=== PATIENT | female | born 1955 | race Caucasian/White ===

== ENCOUNTER → 2017-08-13 | Outpatient (CLI) | payer BC ==
--- NOTE | 2017-08-16 11:50 | MM ---
Reason for exam: screening (asymptomatic). Last mammogram was performed 2 years ago. History: Patient is postmenopausal, history of other cancer, and had first child at age 32. Benign excisional biopsy of the left breast. Benign excisional biopsy of the right breast. Took hormonal contraceptives for 3 years. Physical Findings: A clinical breast exam by your physician is recommended on an annual basis and results should be correlated with mammographic findings. MG Screening Mammo w CAD Bilateral CC and MLO view(s) were taken. Prior study comparison: August 01, 2015, mammogram. There are scattered fibroglandular densities. No significant changes when compared with prior studies. ASSESSMENT: Benign, BI-RAD 2 RECOMMENDATION: Routine screening mammogram of both breasts in 1 year.
== END | disposition home or self-care (01) ==
LOC: RADMAMWWP 09:44
PROVIDERS: ATTEND Family Medicine
DX: Z12.31 Encounter for screening mammogram for malignant neoplasm of breast (principal)

== ENCOUNTER → 2017-09-03 | Outpatient (CLI) | payer BC ==
--- NOTE | 2017-09-03 10:29 | ECHOF ---
Referral Reason:R01.1 Cardiac murmer Unspecified,I10 HTN, ELL.9 MEASUREMENTS -------- HEIGHT: 160.0 cm WEIGHT: 65.3 kg BP: 160/69 RVIDd: 2.6 cm (< 3.3) IVSd: 1.0 cm (0.6 - 1.1) LVIDd: 3.2 cm (3.9 - 5.3) LVPWd: 1.0 cm (0.6 - 1.1) IVSs: 1.5 cm LVIDs: 2.3 cm LVPWs: 1.4 cm LA Diam: 3.0 cm (2.7 - 3.8) LAESV Index (A-L): 21.87 ml/m Ao Diam: 2.7 cm (2.0 - 3.7) AV Cusp: 1.6 cm (1.5 - 2.6) MV EXCURSION: 13.818 mm (> 18.000) MV EF SLOPE: 29 mm/s (70 - 150) EPSS: 0.3 cm MV E Rey: 0.73 m/s MV DecT: 346 ms MV A Rey: 0.85 m/s MV E/A Ratio: 0.86 AV maxP.06 mmHg AV meanP.88 mmHg FINDINGS -------- Sinus rhythm. This was a technically good study. The left ventricular size is normal. Left ventricular wall thickness is normal. Overall left vent ricular systolic function is normal with, an EF between 60 - 65 %. The right ventricle is normal in size. Normal LA size by volume 22+/-6 ml/m2. The right atrium is normal in size. There is mild aortic valve sclerosis. Peak/mean gradient across the Aortic Valve is 13.06mmHg / 5.8 8mmHg. Mild mitral annular calcification present. The tricuspid valve appears structurally normal. There is no pulmonic regurgitation present. The aortic root size is normal. Normal inferior vena cava with normal inspiratory collapse consistent with estimated right atrial pre ssure of 5 mmHg. There is no pericardial effusion. CONCLUSIONS -------- 1. Sinus rhythm. 2. This was a technically good study. 3. The left ventricular size is normal. 4. Left ventricular wall thickness is normal. 5. Overall left ventricular systolic function is normal with, an EF between 60 - 65 %. 6. The right ventricle is normal in size. 7. Normal LA size by volume 22+/-6 ml/m2. 8. The right atrium is normal in size. 9. There is mild aortic valve sclerosis. 10. Peak/mean gradient across the Aortic Valve is 13.06mmHg / 5.88mmHg. 11. Mild mitral annular calcification present. 12. The tricuspid valve appears structurally normal. 13. There is no pulmonic regurgitation present. 14. The aortic root size is normal. 15. Normal inferior vena cava with normal inspiratory collapse consistent with estimated right atrial pressure of 5 mmHg. 16. There is no pericardial effusion. LIVE IN HOUSEKEEPER: Bailee Sanderson RDCS
== END | disposition home or self-care (01) ==
LOC: RADECHMAIN 08:17
PROVIDERS: ATTEND Family Medicine
DX: I35.8 Other nonrheumatic aortic valve disorders (principal)
CPT/HCPCS: 93306

== ENCOUNTER → 2018-11-10 | Outpatient (CLI) | payer BC ==
--- NOTE | 2018-11-11 10:25 | MM ---
Reason for exam: screening (asymptomatic). Last mammogram was performed 1 year and 3 months ago. History: Patient is postmenopausal, history of other cancer, and had first child at age 32. Benign excisional biopsy of the left breast. Benign excisional biopsy of the right breast. Took hormonal contraceptives for 3 years. Physical Findings: A clinical breast exam by your physician is recommended on an annual basis and results should be correlated with mammographic findings. MG Screening Mammo w CAD Bilateral CC and MLO view(s) were taken. Prior study comparison: August 13, 2017, bilateral MG screening mammo w CAD. August 01, 2015, mammogram. There are scattered fibroglandular densities. Stable benign calcifications. There is no discrete abnormality. No significant changes when compared with prior studies. ASSESSMENT: Benign, BI-RAD 2 RECOMMENDATION: Routine screening mammogram of both breasts in 1 year.
== END | disposition home or self-care (01) ==
LOC: RADMAMWWP 15:05
PROVIDERS: ATTEND Family Medicine
DX: Z12.31 Encounter for screening mammogram for malignant neoplasm of breast (principal)
CPT/HCPCS: 77067

== ENCOUNTER → 2019-12-04 | Outpatient (CLI) | payer BC ==
--- NOTE | 2019-12-04 10:18 | MM ---
Reason for exam: screening (asymptomatic). Last mammogram was performed 1 year and 1 month ago. History: Patient is postmenopausal, history of other cancer, and had first child at age 32. Benign excisional biopsy of the left breast. Benign excisional biopsy of the right breast. Took hormonal contraceptives for 3 years. Physical Findings: A clinical breast exam by your physician is recommended on an annual basis and results should be correlated with mammographic findings. MG 3D Screening Mammo W/Cad Bilateral CC and MLO view(s) were taken. Prior study comparison: November 10, 2018, bilateral MG screening mammo w CAD. August 13, 2017, bilateral MG screening mammo w CAD. The breast tissue is heterogeneously dense. This may lower the sensitivity of mammography. There is no discrete abnormality. No significant changes when compared with prior studies. ASSESSMENT: Negative, BI-RAD 1 RECOMMENDATION: Routine screening mammogram of both breasts in 1 year.
== END | disposition home or self-care (01) ==
LOC: RADMAMWWP 07:02
PROVIDERS: ATTEND Family Medicine
DX: Z12.31 Encounter for screening mammogram for malignant neoplasm of breast (principal)
CPT/HCPCS: 77063; 77067

== ENCOUNTER 2022-08-30 17:42 | Inpatient (IN) | payer MEDICARE ==
[2022-08-30] MEDS ORDERED: SODIUM CHLORIDE 0.9% 500 ML 500 ML IV STA (18:31)
--- NOTE | 2022-08-30 18:35 | ED ---
Arrhythmia/Palpitations HPI - General Chief Complaint: Arrhythmia/Palpitations Stated Complaint: Tachycardia Time Seen by Provider: 08/30/22 18:10 Source: patient, family, RN notes reviewed, old records reviewed Mode of arrival: ambulatory Limitations: no limitations - History of Present Illness Initial Comments: Well-appearing 66-year-old female presents to the emergency room with family complaining of palpitations that started 1 hour ago while at rest. Patient states that she did see Dr. Bush for these palpitations and was placed on a media monitor on Wednesday. He advised her that if her symptoms came back to come to the emergency room. She denies any chest pain, difficulty breathing, no nausea vomiting diarrhea or fevers. She has a history of diabetes, hypertension and melanoma. Does take lisinopril 30 mg daily. MD Complaint: rapid heart beat, palpitations -: hour(s) (1) Context: occurred during rest Associated Symptoms: denies other symptoms Treatments Prior to Arrival: other (media monitor placed Wednesday) - Related Data Home Medications Medication Instructions Recorded Confirmed Atorvastatin [Lipitor] 20 mg PO HS 05/29/14 08/30/22 Metformin Er 750mg 1 tab PO DAILY 08/30/22 08/30/22 lisinopriL [Zestril] 30 mg PO DAILY 08/30/22 08/30/22 Allergies Allergy/AdvReac Type Severity Reaction Status Date / Time Penicillins Allergy Rash/Hives Verified 08/30/22 20:15 Review of Systems ROS Statement: Those systems with pertinent positive or pertinent negative responses have been documented in the HPI. ROS Other: All systems not noted in ROS Statement are negative. Past Medical History Past Medical History: Cancer, Diabetes Mellitus, Hyperlipidemia, Hypertension Additional Past Medical History / Comment(s): HAD SOME BANDING OF HEMORRHOIDS IN 'S OFFICE- STILL AHS ONE THAT IS BLEEDING AT TIMES-WEARS A PAD. HX SKIN CA- MELANOMA RT THIGH History of Any Multi-Drug Resistant Organisms: None Reported Past Surgical History: Breast Surgery, Cholecystectomy Additional Past Surgical History / Comment(s): BIOPSIES RADHA. BREAST AND UNDERARM AREAS A CHILD -BENIGN Past Anesthesia/Blood Transfusion Reactions: No Reported Reaction Past Psychological History: No Psychological Hx Reported Smoking Status: Never smoker Past Alcohol Use History: Occasional Past Drug Use History: None Reported General Exam Limitations: no limitations General appearance: alert, in no apparent distress Eye exam: Absent: scleral icterus, conjunctival injection Respiratory exam: Present: normal lung sounds bilaterally. Absent: respiratory distress, wheezes, rales, rhonchi, stridor, chest wall tenderness, accessory muscle use Cardiovascular Exam: Present: irregular rhythm GI/Abdominal exam: Present: soft. Absent: distended, tenderness, guarding, rebound, rigid Extremities exam: Present: normal inspection, full ROM, normal capillary refill. Absent: pedal edema Back exam: Present: normal inspection, full ROM. Absent: tenderness, CVA tenderness (R), CVA tenderness (L), rash noted Neurological exam: Present: alert, oriented X3 Psychiatric exam: Present: normal affect, normal mood Skin exam: Present: warm, dry, normal color. Absent: cyanosis, diaphoretic, petechiae, pallor Course Vital Signs 08/30/22 08/30/22 08/30/22 18:06 19:04 20:08 Temperature 99 F Pulse Rate 96 161 H 87 Respiratory 20 18 18 Rate Blood Pressure 136/83 120/72 137/66 O2 Sat by Pulse 98 99 97 Oximetry - Reevaluation(s) Reevaluation #1: 08/30/22 19:29 Ventricular rate controlled with Cardizem at 76. Time: 19:29 EKG Findings - EKG Results: EKG shows: atrial fibrillation (Atrial fibrillation with rapid ventricular rate 151, QRS 0.79, QTC 0.341; normal axis) Medical Decision Making - Medical Decision Making Patient presents with palpitations that started about one hour ago. She was put on a media monitor by her certified registered dental assistant Dr. Bush on Wednesday for palpitations. Upon arrival EKG shows atrial fibrillation with rapid ventricular rate 160 Patient was given 20 mg of Cardizem with rate control down to 76. At 2200 patient's rate back to 140, afib.. She was given another bolus and started on a Cardizem drip. Patient is hemodynamically stable. CBC is unremarkable. Electrolytes show magnesium 1.4 patient was given IV magnesium replacement. Troponin is negative at 0.012. BUN and creatinine are slightly elevated at 20 and 1.08. No old labs to compare. Chest x-ray negative. Patient was advised of findings and agreeable to admission. Patient will be admitted to the hospital with new onset atrial fibrillation and hypomagnesemia. Case discussed with Dr. Khanpara - Lab Data Result diagrams: 08/30/22 18:51 08/30/22 18:51 Lab Results 08/30/22 08/30/22 08/30/22 Range/Units 18:51 18:51 18:51 WBC 8.1 (3.8-10.6) k/uL RBC 4.12 (3.80-5.40) m/uL Hgb 12.8 (11.4-16.0) gm/dL Hct 37.3 (34.0-46.0) % MCV 90.5 (80.0-100.0) fL MCH 31.0 (25.0-35.0) pg MCHC 34.3 (31.0-37.0) g/dL RDW 13.8 (11.5-15.5) % Plt Count 202 (150-450) k/uL MPV 9.6 Neutrophils % 66 % Lymphocytes % 19 % Monocytes % 6 % Eosinophils % 7 % Basophils % 1 % Neutrophils # 5.3 (1.3-7.7) k/uL Lymphocytes # 1.5 (1.0-4.8) k/uL Monocytes # 0.5 (0-1.0) k/uL Eosinophils # 0.6 (0-0.7) k/uL Basophils # 0.1 (0-0.2) k/uL PT 10.7 (9.0-12.0) sec INR 1.0 (<1.2) APTT 23.3 (22.0-30.0) sec Sodium 138 (137-145) mmol/L Potassium 4.0 (3.5-5.1) mmol/L Chloride 104 (98-107) mmol/L Carbon Dioxide 18 L (22-30) mmol/L Anion Gap 16 mmol/L BUN 20 H (7-17) mg/dL Creatinine 1.08 H (0.52-1.04) mg/dL Est GFR (CKD-EPI)AfAm 62 (>60 ml/min/1.73 sqM) Est GFR (CKD-EPI)NonAf 54 (>60 ml/min/1.73 sqM) Glucose 202 H (74-99) mg/dL Calcium 9.2 (8.4-10.2) mg/dL Magnesium 1.4 L (1.6-2.3) mg/dL Total Bilirubin 0.3 (0.2-1.3) mg/dL AST 23 (14-36) U/L ALT 17 (4-34) U/L Alkaline Phosphatase 50 (38-126) U/L Troponin I (0.000-0.034) ng/mL Total Protein 7.0 (6.3-8.2) g/dL Albumin 4.4 (3.5-5.0) g/dL 08/30/22 Range/Units 18:51 WBC (3.8-10.6) k/uL RBC (3.80-5.40) m/uL Hgb (11.4-16.0) gm/dL Hct (34.0-46.0) % MCV (80.0-100.0) fL MCH (25.0-35.0) pg MCHC (31.0-37.0) g/dL RDW (11.5-15.5) % Plt Count (150-450) k/uL MPV Neutrophils % % Lymphocytes % % Monocytes % % Eosinophils % % Basophils % % Neutrophils # (1.3-7.7) k/uL Lymphocytes # (1.0-4.8) k/uL Monocytes # (0-1.0) k/uL Eosinophils # (0-0.7) k/uL Basophils # (0-0.2) k/uL PT (9.0-12.0) sec INR (<1.2) APTT (22.0-30.0) sec Sodium (137-145) mmol/L Potassium (3.5-5.1) mmol/L Chloride (98-107) mmol/L Carbon Dioxide (22-30) mmol/L Anion Gap mmol/L BUN (7-17) mg/dL Creatinine (0.52-1.04) mg/dL Est GFR (CKD-EPI)AfAm (>60 ml/min/1.73 sqM) Est GFR (CKD-EPI)NonAf (>60 ml/min/1.73 sqM) Glucose (74-99) mg/dL Calcium (8.4-10.2) mg/dL Magnesium (1.6-2.3) mg/dL Total Bilirubin (0.2-1.3) mg/dL AST (14-36) U/L ALT (4-34) U/L Alkaline Phosphatase (38-126) U/L Troponin I <0.012 (0.000-0.034) ng/mL Total Protein (6.3-8.2) g/dL Albumin (3.5-5.0) g/dL Disposition Clinical Impression: New onset atrial fibrillation, Atrial fibrillation with RVR, Hypomagnesemia Disposition: ADMITTED IP TO THIS [facility] Decision Date: 08/30/22 Decision Time: 18:55
[2022-08-30] MEDS ORDERED: DILTIAZEM 5 MG/ML 5 ML VIAL IVP STA ×3 (18:40→22:06)
[2022-08-30 18:58] LABS: Basophils # (A) 0.1 k/uL (0-0.2); Basophils % (A) 1 %; Eosinophils # (A) 0.6 k/uL (0-0.7); Eosinophils % (A) 7 %; HCT 37.3 % (34.0-46.0); HGB 12.8 gm/dL (11.4-16.0); Lymphocytes # (A) 1.5 k/uL (1.0-4.8); Lymphocytes % (A) 19 %; MCHC 34.3 g/dL (31.0-37.0); MCV 90.5 fL (80.0-100.0); Mean Platelet Volume 9.6; Monocytes # (A) 0.5 k/uL (0-1.0); Monocytes % (A) 6 %; Neutrophils # (A) 5.3 k/uL (1.3-7.7); Neutrophils % (A) 66 %; Platelet Count 202 k/uL (150-450); RBC 4.12 m/uL (3.80-5.40); RDW 13.8 % (11.5-15.5); WBC 8.1 k/uL (3.8-10.6)
[2022-08-30 19:04] LABS: Partial Thromboplastin Time 23.3 sec (22.0-30.0); Prothrombin Time 10.7 sec (9.0-12.0)
[2022-08-30 19:12] LABS: Albumin 4.4 g/dL (3.5-5.0); Calcium 9.2 mg/dL (8.4-10.2); Magnesium 1.4 mg/dL (1.6-2.3); Total Bilirubin 0.3 mg/dL (0.2-1.3)
[2022-08-30] MEDS ORDERED: Magnesium Replacement Protocol 1 EACH MISC MISCELLANE PRN (19:27)
--- NOTE | 2022-08-30 19:59 | XR ---
EXAMINATION TYPE: XR chest 2V DATE OF EXAM: 08/30/2022 COMPARISON: NONE HISTORY: Palpitations TECHNIQUE: 2 views FINDINGS: Heart and mediastinum are normal. Lungs are clear. Diaphragm is normal. Bony thorax is inta ct. There are chest leads. IMPRESSION: Normal chest.
[2022-08-30] MEDS: MAGNESIUM SULFATE-D5W PMX 1 GM in DEXTROSE/WATER 1 100ML.BAG IVPB SCH ×2 (20:07→22:05)
[2022-08-30] MEDS ORDERED: ACETAMINOPHEN TAB 325 MG TAB PO PRN (20:09)
[2022-08-30] MEDS ORDERED: NALOXONE 0.4 MG/ML 1 ML VIAL IV PRN (20:09)
[2022-08-30] MEDS: DILTIAZEM 125 MG in SODIUM CHLORIDE 0.9% 100 ML IV SCH (22:47)
[2022-08-31] MEDS: MAGNESIUM SULFATE-D5W PMX 1 GM in DEXTROSE/WATER 1 100ML.BAG IVPB SCH (00:12)
[2022-08-31 05:57] LABS: Glucose,Whole Blood 155 mg/dL (70-110)
[2022-08-31 06:46] LABS: HCT 37.2 % (34.0-46.0); HGB 12.7 gm/dL (11.4-16.0); MCH 31.4 pg (25.0-35.0); MCHC 34.2 g/dL (31.0-37.0); MCV 91.7 fL (80.0-100.0); Mean Platelet Volume 9.2; Platelet Count 199 k/uL (150-450); RBC 4.06 m/uL (3.80-5.40); RDW 13.4 % (11.5-15.5); WBC 7.6 k/uL (3.8-10.6)
[2022-08-31 07:02] LABS: Calcium 8.5 mg/dL (8.4-10.2); Magnesium 2.1 mg/dL (1.6-2.3); Potassium 4.1 mmol/L (3.5-5.1)
[2022-08-31] MEDS: METOPROLOL SUCCINATE (ER) 25 MG TAB.ER.24H PO SCH (08:45)
[2022-08-31] MEDS: lisinopriL 10 MG TAB PO SCH (08:45)
[2022-08-31] MEDS: metFORMIN 500 MG TAB PO SCH ×2 (08:45→20:32)
[2022-08-31] MEDS: APIXABAN 5 MG TAB PO SCH ×2 (08:45→20:32)
--- NOTE | 2022-08-31 10:11 | P.CRDCN ---
History of Present Illness History of present illness: HISTORY OF PRESENTING ILLNESS This is a pleasant 66-year-old female past medical history significant for type 2 diabetes, hypertension, dyslipidemia. She follows in the office with Dr. Bush. We have been asked to see in consultation for new onset atrial fibrillation with rapid ventricular response. Patient presents to the emergency department with complaints of palpitations. She states she had them yesterday for about an hour while at rest. She presents emergency department for further evaluation. She denies any chest pain, lightheadedness, dizziness, shortness of breath, syncope or near-syncope. She denies any cough, fever, chills. She denies any history of CAD, MA, stroke, seizures, lung disease. She does have a family history of CAD. She denies any tobacco or illicit drug use. Occasional alcohol use. On admission patient was found to be in atrial fibrillation with rapid ventricular response, started on IV Cardizem drip, her heart rate improved. DIAGNOSTICS EKG reveals atrial fibrillation with rapid ventricular response, heart rate 151 Telemetry reviewed, patient continues to be in atrial fibrillation with controlled ventricular rates Chest xray no acute cardiopulmonary process Laboratory reviewed, CBC unremarkable, sodium 137, potassium 4.1, BUN 18, serum crit 0.8, troponin negative, TSH within normal limits, magnesium 2.1 Current home medications include atorvastatin 20 mg nightly, metformin, lisinopril 2039 g daily REVIEW OF SYSTEMS At the time of my exam: CONSTITUTIONAL: Denies fever or chills. CARDIOVASCULAR: Denies chest pain, shortness of breath, orthopnea, PND +palpitations. RESPIRATORY: Denies cough. GASTROINTESTINAL: Denies abdominal pain, diarrhea, constipation, nausea or vomiting. MUSCULOSKELETAL: Denies myalgias. NEUROLOGIC: Denies numbness, tingling, headacbe or weakness. ENDOCRINE: Denies fatigue, weight change, polydipsia or polyurina. GENITOURINARY: Denies burning, hematuria or urgency with micturation. HEMATOLOGIC: Denies history of anemia or bleeding. PHYSICAL EXAMINATION Vitals blood pressure 133/85, heart 92, afebrile, saturations 96% room air CONSTITUTIONAL: No apparent distress. HEENT: Head is normocephalic. Pupils are equal, round. Sclerae anicteric. Mucous membranes of the mouth are moist. No JVD. No carotid bruit. CHEST EXAMINATION: Lungs are clear to auscultation. No chest wall tenderness is noted on palpation or with deep breathing. HEART EXAMINATION: Irregular rate and rhythm. S1, S2 heard. No murmurs, gallops or rub. ABDOMEN: Soft, nontender. Positive bowel sounds. EXTREMITIES: 2+ peripheral pulses, no lower extremity edema and no calf tenderness. SKIN: Warm, dry NEUROLOGIC EXAMINATION: Patient is awake, alert and oriented x3. ASSESSMENT New onset paroxysmal atrial fibrillation with rapid ventricular response [id number] score 4 Palpitations Type 2 diabetes Hypertension Dyslipidemia PLAN Start metoprolol 25mg daily Wean off Cardizem drip Start anticoagulation with Eliquis 5mg BID, consult case management for coverage Cardiac telemetry Obtain 2D echocardiogram Further recommendations based on clinical course Nurse practitioner note has been reviewed by physician. Signing provider agrees with the documented findings, assessment, and plan of care. Past Medical History Past Medical History: Cancer, Diabetes Mellitus, Hyperlipidemia, Hypertension Additional Past Medical History / Comment(s): HAD SOME BANDING OF HEMORRHOIDS IN 'S OFFICE- STILL AHS ONE THAT IS BLEEDING AT TIMES-WEARS A PAD. HX SKIN CA- MELANOMA RT THIGH History of Any Multi-Drug Resistant Organisms: None Reported Past Surgical History: Breast Surgery, Cholecystectomy Additional Past Surgical History / Comment(s): BIOPSIES RADHA. BREAST AND UNDERARM AREAS A CHILD -BENIGN Past Anesthesia/Blood Transfusion Reactions: No Reported Reaction Past Psychological History: No Psychological Hx Reported Smoking Status: Never smoker Past Alcohol Use History: Occasional Past Drug Use History: None Reported Medications and Allergies Home Medications Medication Instructions Recorded Confirmed Type Atorvastatin [Lipitor] 20 mg PO HS 05/29/14 08/30/22 History Metformin Er 750mg 1 tab PO DAILY 08/30/22 08/30/22 History lisinopriL [Zestril] 30 mg PO DAILY 08/30/22 08/30/22 History Allergies Allergy/AdvReac Type Severity Reaction Status Date / Time Penicillins Allergy Rash/Hives Verified 08/30/22 20:15 Physical Exam Vitals: Vital Signs Temp Pulse Pulse Resp BP BP Pulse Ox 08/31/22 03:17 98.8 F 86 17 124/69 98 08/30/22 23:27 88 18 113/70 97 08/30/22 22:06 148 H 18 135/98 98 08/30/22 20:08 87 18 137/66 97 08/30/22 19:04 161 H 18 120/72 99 08/30/22 18:06 99 F 96 20 136/83 98 Intake and Output 08/30/22 08/31/22 08/31/22 22:59 06:59 14:59 Other: Voiding Method Toilet # Voids 1 Weight 60.328 kg Results 08/31/22 06:36 08/31/22 06:36 Cardiac Enzymes 08/30/22 08/30/22 Range/Units 18:51 18:51 AST 23 (14-36) U/L Troponin I <0.012 (0.000-0.034) ng/mL Coagulation 08/30/22 Range/Units 18:51 PT 10.7 (9.0-12.0) sec APTT 23.3 (22.0-30.0) sec CBC 08/30/22 08/31/22 Range/Units 18:51 06:36 WBC 8.1 7.6 (3.8-10.6) k/uL RBC 4.12 4.06 (3.80-5.40) m/uL Hgb 12.8 12.7 (11.4-16.0) gm/dL Hct 37.3 37.2 (34.0-46.0) % Plt Count 202 199 (150-450) k/uL Comprehensive Metabolic Panel 08/30/22 08/31/22 Range/Units 18:51 06:36 Sodium 138 137 (137-145) mmol/L Potassium 4.0 4.1 (3.5-5.1) mmol/L Chloride 104 104 (98-107) mmol/L Carbon Dioxide 18 L 23 (22-30) mmol/L BUN 20 H 18 H (7-17) mg/dL Creatinine 1.08 H 0.82 (0.52-1.04) mg/dL Glucose 202 H 157 H (74-99) mg/dL Calcium 9.2 8.5 (8.4-10.2) mg/dL AST 23 (14-36) U/L ALT 17 (4-34) U/L Alkaline Phosphatase 50 (38-126) U/L Total Protein 7.0 (6.3-8.2) g/dL Albumin 4.4 (3.5-5.0) g/dL Current Medications Generic Name Dose Route Start Last Admin Trade Name Freq PRN Reason Stop Dose Admin Acetaminophen 650 mg 08/30/22 20:09 Acetaminophen Tab 325 Mg Tab PO Q6HR PRN Mild Pain or Fever > 100.5 Diltiazem HCl 125 mg/ Sodium 125 mls @ 5 mls/hr 08/30/22 22:15 08/30/22 22:47 Chloride IV 5 mg/hr .Q24H ARSEN 5 mls/hr Administration 5 MG/HR Lisinopril 30 mg 08/31/22 09:00 Lisinopril 10 Mg Tab PO DAILY ARSEN Metformin HCl 500 mg 08/31/22 09:00 Metformin 500 Mg Tab PO BID [facility] Miscellaneous Information 1 each 08/30/22 19:27 Magnesium Replacement Protocol 1 Each Misc MISCELLANE DAILY PRN Per Protocol Protocol Naloxone HCl 0.2 mg 08/30/22 20:09 Naloxone 0.4 Mg/Ml 1 Ml Vial IV Q2M PRN Opioid Reversal Intake and Output 08/30/22 08/31/22 08/31/22 22:59 06:59 14:59 Other: Voiding Method Toilet # Voids 1 Weight 60.328 kg 08/31/22 06:36 08/31/22 06:36
--- NOTE | 2022-08-31 13:29 | P.HPIM ---
History of Present Illness 66-year-old pleasant female came in with compensative palpitation found to be in atrial fibrillation patient also has older monitored which is which are showing atrial fibrillation patient denied any chest pain patient denied any lig htheadedness or shortness of breath or near syncopal episode. Patient doesn't have any fever is not dehydrated denied any diarrhea. Patient denied any previous history of coronary artery disease or any other cardiac disease. Echocardiogram is pending patient is on Cardizem which is being weaned off patient was started on metoprolol patient has a chads score of 4 and the patient is being started on anticoagulation at this time. Patient's symptoms improved remains in atrial fibrillation but rate controlled at this time. REVIEW OF SYSTEMS: CONSTITUTIONAL: No fever, no malaise, no fatigue. HEENT: No recent visual problems or hearing problems. Denied any sore throat. CARDIOVASCULAR: No chest pain, orthopnea, PND, no palpitations, no syncope. PULMONARY: No shortness of breath, no cough, no hemoptysis. GASTROINTESTINAL: No diarrhea, no nausea, no vomiting, no abdominal pain. NEUROLOGICAL: No headaches, no weakness, no numbness. HEMATOLOGICAL: Denies any bleeding or petechiae. GENITOURINARY: Denies any burning micturition, frequency, or urgency. MUSCULOSKELETAL/RHEUMATOLOGICAL: Denies any joint pain, swelling, or any muscle pain. ENDOCRINE: Denies any polyuria or polydipsia. The rest of the 14-point review of systems is negative. PHYSICAL EXAMINATION: GENERAL: The patient is alert and oriented x3, not in any acute distress. Well developed, well nourished. HEENT: Pupils are round and equally reacting to light. EOMI. No scleral icterus. No conjunctival pallor. Normocephalic, atraumatic. No pharyngeal erythema. No thyromegaly. CARDIOVASCULAR: S1 and S2 present. No murmurs, rubs, or gallops. Irregularly irregular rhythm PULMONARY: Chest is clear to auscultation, no wheezing or crackles. ABDOMEN: Soft, nontender, nondistended, normoactive bowel sounds. No palpable organomegaly. MUSCULOSKELETAL: No joint swelling or deformity. EXTREMITIES: No cyanosis, clubbing, or pedal edema. NEUROLOGICAL: Gross neurological examination did not reveal any focal deficits. SKIN: No rashes. Assessment and plan Onset atrial fibrillation: Probably paroxysmal rate controlled at this time continue with the metoprolol been off Cardizem. Patient will be continued on anticoagulation awaiting echo -Type 2 diabetes mellitus -Hypertension -dyslipidemia Patient was resumed on home medications for above-mentioned chronic stable medical problems DVT prophylaxis: On anticoagulation Past Medical History Past Medical History: Cancer, Diabetes Mellitus, Hyperlipidemia, Hypertension Additional Past Medical History / Comment(s): HAD SOME BANDING OF HEMORRHOIDS IN 'S OFFICE- STILL AHS ONE THAT IS BLEEDING AT TIMES-WEARS A PAD. HX SKIN CA- MELANOMA RT THIGH History of Any Multi-Drug Resistant Organisms: None Reported Past Surgical History: Breast Surgery, Cholecystectomy Additional Past Surgical History / Comment(s): BIOPSIES RADHA. BREAST AND UNDERARM AREAS A CHILD -BENIGN Past Anesthesia/Blood Transfusion Reactions: No Reported Reaction Past Psychological History: No Psychological Hx Reported Smoking Status: Never smoker Past Alcohol Use History: Occasional Past Drug Use History: None Reported Medications and Allergies Home Medications Medication Instructions Recorded Confirmed Type Atorvastatin [Lipitor] 20 mg PO HS 05/29/14 08/30/22 History Metformin Er 750mg 1 tab PO DAILY 08/30/22 08/30/22 History lisinopriL [Zestril] 30 mg PO DAILY 08/30/22 08/30/22 History Apixaban [Eliquis] 5 mg PO BID #180 tab 08/31/22 Rx Allergies Allergy/AdvReac Type Severity Reaction Status Date / Time Penicillins Allergy Rash/Hives Verified 08/30/22 20:15 Physical Exam Vitals: Vital Signs Temp Pulse Pulse Resp BP BP Pulse Ox 08/31/22 12:48 60 18 97 08/31/22 11:50 56 L 18 110/62 97 08/31/22 11:00 61 18 96 08/31/22 10:00 75 18 98 08/31/22 08:41 97.3 F L 92 18 133/85 96 08/31/22 03:17 98.8 F 86 17 124/69 98 08/30/22 23:27 88 18 113/70 97 08/30/22 22:06 148 H 18 135/98 98 08/30/22 20:08 87 18 137/66 97 08/30/22 19:04 161 H 18 120/72 99 08/30/22 18:06 99 F 96 20 136/83 98 Intake and Output 08/30/22 08/31/2222 22:59 06:59 14:59 Intake Total 65.25 Balance 65.25 Intake: Intake, IV Titration 65.25 Amount Diltiazem 125 mg In 65.25 Sodium Chloride 0.9% 100 ml @ 5 MG/HR 5 mls/hr IV .Q24H [facility] Rx#:[id number] Other: Voiding Method Toilet # Voids 1 Weight 60.328 kg Results CBC & Chem 7: 08/31/22 06:36 08/31/22 06:36 Labs: Abnormal Lab Results - Last 24 Hours (Table) 08/30/22 08/31/22 08/31/22 Range/Units 18:51 05:56 06:36 Carbon Dioxide 18 L (22-30) mmol/L BUN 20 H 18 H (7-17) mg/dL Creatinine 1.08 H (0.52-1.04) mg/dL Glucose 202 H 157 H (74-99) mg/dL POC Glucose (mg/dL) 155 H (70-110) mg/dL Magnesium 1.4 L (1.6-2.3) mg/dL
--- NOTE | 2022-08-31 18:09 | CA ---
Transthoracic Echo Report Name: Beena Neely Age: 66 Gender: F : 1955 Exam Date: 08/31/2022 13:27 Exam Location: [facility] Ht (in): 62 Wt (lb): 133 Ordering Physician: Gege Monahan Attending/Referring Phys: Family Law Specialist Clara Chua, QUIANA Procedure CPT: Indications: new onset a fib Cardiac Hx: Technical Quality: Contrast 1: Total Dose (mL): Contrast 2: Total Dose (mL): MEASUREMENTS (Male / Female) Normal Values 2D ECHO LV Diastolic Diameter PLAX 3.9 cm 4.2 - 5.9 / 3.9 - 5.3 cm LV Systolic Diameter PLAX 3.2 cm IVS Diastolic Thickness 1.0 cm 0.6 - 1.0 / 0.6 - 0.9 cm LVPW Diastolic Thickness 1.4 cm 0.6 - 1.0 / 0.6 - 0.9 cm LV Relative Wall Thickness 0.6 LA Systolic Diameter LX 3.6 cm 3.0 - 4.0 / 2.7 - 3.8 cm LA Volume 62.5 cm??? 18 - 58 / 22 - 52 cm??? M-MODE Aortic Root Diameter MM 2.9 cm LA Systolic Diameter MM 4.3 cm LA Ao Ratio MM 1.5 AV Cusp Separation MM 1.6 cm DOPPLER TR Peak Velocity 162.3 cm/s TR Peak Gradient 10.5 mmHg Right Ventricular Systolic Press 15.5 mmHg FINDINGS Left Ventricle Left ventricular ejection fraction is estimated at 55%. Mildly increased left ventricular wall thickness. Right Ventricle Normal right ventricular size and function. Right Atrium Normal right atrial size. Left Atrium Mildly increased left atrial volume. Mitral Valve Structurally normal mitral valve. Mild mitral regurgitation. Aortic Valve Trileaflet aortic valve. Tricuspid Valve Structurally normal tricuspid valve. Mild tricuspid regurgitation. Pulmonic Valve Structurally normal pulmonic valve. Pericardium Normal pericardium. Aorta Normal size aortic root and proximal ascending aorta. CONCLUSIONS LVH with preserved systolic function Previewed by: Dr. Apollo Haskins MD (Electronically Signed) Final Date: 31 August 2022 18:08
[2022-08-31 19:55] LABS: Glucose,Whole Blood 211 mg/dL (70-110)
[2022-08-31] MEDS: DILTIAZEM 125 MG in SODIUM CHLORIDE 0.9% 100 ML IV SCH (20:59)
[2022-08-31 23:55] VITALS: TEMP 98
[2022-09-01 05:38] LABS: Glucose,Whole Blood 154 mg/dL (70-110)
[2022-09-01 09:39] VITALS: BP 131/77
[2022-09-01] MEDS: lisinopriL 10 MG TAB PO SCH (09:40)
[2022-09-01] MEDS: metFORMIN 500 MG TAB PO SCH (09:41)
[2022-09-01] MEDS: METOPROLOL SUCCINATE (ER) 25 MG TAB.ER.24H PO SCH (09:42)
[2022-09-01] MEDS ORDERED: METOPROLOL SUCCINATE (ER) 25 MG TAB.ER.24H PO SCH (09:45)
--- NOTE | 2022-09-01 10:50 | P.PN ---
Subjective This is a pleasant 66-year-old female past medical history significant for type 2 diabetes, hypertension, dyslipidemia. She follows in the office with Dr. Bush. We have been asked to see in consultation for new onset atrial fibrillation with rapid ventricular response. Patient presents to the emergency department with complaints of palpitations. She states she had them yesterday for about an hour while at rest. She presents emergency department for further evaluation. She denies any chest pain, lightheadedness, dizziness, shortness of breath, syncope or near-syncope. She denies any cough, fever, chills. She denies any history of CAD, MO, stroke, seizures, lung disease. She does have a family history of CAD. She denies any tobacco or illicit drug use. Occasional alcohol use. On admission patient was found to be in atrial fibrillation with rapid ventricular response, started on IV Cardizem drip, her heart rate improved. 09/01/2022 Patient seen and examined at bedside, no acute distress. She converted to sinus rhythm heart rates 46-50s. Echocardiogram revealed EF 55%, mild mitral regurgitation, tricuspid regurgitation. Her eliquis was $126 copay a month per case management. PHYSICAL EXAMINATION Vitals blood pressure 131/77, heart rate 49, afebrile, oxygen saturation is 99% on room air CONSTITUTIONAL: No apparent distress. HEENT: Head is normocephalic. Pupils are equal, round. Sclerae anicteric. Mucous membranes of the mouth are moist. No JVD. No carotid bruit. CHEST EXAMINATION: Lungs are clear to auscultation. No chest wall tenderness is noted on palpation or with deep breathing. HEART EXAMINATION: Regular rate and rhythm. S1, S2 heard. No murmurs, gallops or rub. ABDOMEN: Soft, nontender. Positive bowel sounds. EXTREMITIES: 2+ peripheral pulses, no lower extremity edema and no calf tenderness. NEUROLOGIC EXAMINATION: Patient is awake, alert and oriented x3. ASSESSMENT New onset paroxysmal atrial fibrillation with rapid ventricular response [id number] score 4 Palpitations Type 2 diabetes Hypertension Dyslipidemia PLAN Metoprolol succinate 12.5mg daily Transition to Xarelto 20mg daily secondary to cost and Eliquis not affordable. From cardiology perspective, patient stable to be discharged home. Follow up outpatient with Dr. Bush Nurse practitioner note has been reviewed by physician. Signing provider agrees with the documented findings, assessment, and plan of care. Objective - Vital Signs Vital signs: Vital Signs Temp 98 F 08/31/22 23:52 Pulse 49 L 09/01/22 09:37 Resp 15 09/01/22 09:37 BP 131/77 09/01/22 09:37 Pulse Ox 99 09/01/22 09:37 FiO2 Intake & Output 08/31/22 09/01/22 09/01/22 18:59 06:59 18:59 Intake Total 65.25 240 Balance 65.25 240 Weight 60.328 kg Intake: Intake, IV Titration 65.25 Amount Diltiazem 125 mg In 65.25 Sodium Chloride 0.9% 100 ml @ 5 MG/HR 5 mls/hr IV .Q24H [facility] Rx#:[id number] Oral 240 Other: Voiding Method Toilet # Voids 2 - Labs CBC & Chem 7: 08/31/22 06:36 08/31/22 06:36 Labs: Abnormal Lab Results - Last 24 Hours (Table) 08/31/22 09/01/22 Range/Units 19:54 05:36 POC Glucose (mg/dL) 211 H 154 H (70-110) mg/dL
[2022-09-01 11:43] LABS: Glucose,Whole Blood 101 mg/dL (70-110)
[2022-09-01 12:30] VITALS: PULSE 60; RESP 22
[2022-09-01] MEDS ORDERED: RIVAROXABAN 20 MG TAB PO SCH (17:30)
--- NOTE | 2022-09-02 15:37 | P.DS ---
Providers Date of admission: 08/30/22 19:56 Expected date of discharge: 09/01/22 Attending physician: Bishop Vera Consults: 08/30/22 20:09 Consult Physician Routine Consulting Provider: Gabino Gandhi Consult Reason/Comments: New onset atrial fibrillation with RVR Do you want consulting provider notified?: Yes, Notify in am Primary care physician: Armando Lai Hospital Course: Final diagnosis New onset atrial fibrillation with RVR, paroxysmal Type 2 diabetes mellitus Hypertension Hyperlipidemia DVT prophylaxis GI prophylaxis Full code Discharge disposition Patient is being discharged in a stable condition with guarded prognosis to home. Patient will follow-up with Dr. Lai in the outpatient setting upon discharge. Patient is to follow-up with cardiology as scheduled. She will continue metoprolol along with Xarelto on discharge. Total time taken is greater than 35 minutes. Hospital course This is a 66-year-old female who was recently admitted with atrial fibrillation with RVR and was initially placed on Cardizem. Cardiology evaluated the patient and Cardizem was discontinued and patient was placed on metoprolol and initially on eliquis although that was too costly and switched to several toe which is more manageable and patient agreeable. Patient currently in sinus rhythm and has been cleared by cardiology for outpatient follow-up. Patient is extremely anxious to go home and reports to feeling well today. Currently no reports of chest pain, shortness of breath, or palpitations. Patient is afebrile. No reports of nausea or vomiting and patient is tolerating diet. Patient will be discharged home today. Physical exam: Gen: This is a 66-year-old female awake, alert and oriented 3, well-developed, well-nourished HEENT: Head is atraumatic, normocephalic. Pupils equal, round. Sclerae is anicteric. NECK: Supple. No JVD. No lymphadenopathy. No thyromegaly. LUNGS: Clear to auscultation. No wheezes or rhonchi. No intercostal retra ctions. HEART: Irregularly irregular ABDOMEN: Soft. Bowel sounds are present. No masses. No tenderness. EXTREMITIES: No pedal edema. No calf tenderness. NEUROLOGICAL: Patient is awake, alert and oriented x3. Cranial nerves 2 through 12 are grossly intact. Please refer to medication reconciliation sheet for a list of medications. The impression and plan of care has been dictated by Roberta Green, Nurse Practitioner as directed. Dr. Ami MD I have performed a history and examination and MDM of this patient, discussed the same with the dictator, and agree with the dictator's assessment and plan as written ,documented as a scribe. Based on total visit time, I have performed more than 50% of the visit. Patient Condition at Discharge: Stable Plan - Discharge Summary New Discharge Prescriptions: New Metoprolol Succinate (ER) [Toprol XL] 12.5 mg PO DAILY #90 tab Rivaroxaban [Xarelto] 20 mg PO DAILY #30 tab Acetaminophen Tab [Tylenol] 650 mg PO Q6HR PRN tab PRN Reason: Mild Pain Or Fever > 100.5 Continue Atorvastatin [Lipitor] 20 mg PO HS Metformin Er 750mg 1 tab PO DAILY lisinopriL [Zestril] 30 mg PO DAILY Discharge Medication List Atorvastatin [Lipitor] 20 mg PO HS 05/29/14 [History] Metformin Er 750mg 1 tab PO DAILY 08/30/22 [History] lisinopriL [Zestril] 30 mg PO DAILY 08/30/22 [History] Acetaminophen Tab [Tylenol] 650 mg PO Q6HR PRN tab 09/01/22 [Rx] Metoprolol Succinate (ER) [Toprol XL] 12.5 mg PO DAILY #90 tab 09/01/22 [Rx] Rivaroxaban [Xarelto] 20 mg PO DAILY #30 tab 09/01/22 [Rx] Follow up Appointment(s)/Referral(s): Armando Lai III, MD [Primary Care Provider] - 1-2 days Rolan Bush MD [STAFF PHYSICIAN] - 09/07/22 4:15 pm Patient Instructions/Handouts: Rivaroxaban (By mouth), A-fib (Atrial Fibrillation) (GEN) Activity/Diet/Wound Care/Special Instructions: Xarelto is $42/month co-pay per pharmacy staff at [facility]. Activity Limited until follow-up Follow-up with primary care provider on discharge Follow-up with cardiology outpatient Continue taking medications as prescribed . Discharge Disposition: HOME SELF-CARE
== END 2022-09-01 14:41 | disposition home or self-care (01) | DRG 310 ==
LOC: EC 17:42 → 3SCARD 19:56
PROVIDERS: ADMIT Hospitalist; ATTEND Hospitalist
DX: I48.0 Paroxysmal atrial fibrillation (principal); E83.42 Hypomagnesemia; E11.9 Type 2 diabetes mellitus without complications; E78.5 Hyperlipidemia, unspecified; I10 Essential (primary) hypertension; K64.9 Unspecified hemorrhoids; Z85.820 Personal history of malignant melanoma of skin; Z88.0 Allergy status to penicillin; Z79.899 Other long term (current) drug therapy; Z79.84 Long term (current) use of oral hypoglycemic drugs; Z82.49 Family history of ischemic heart disease and other diseases of the circulatory system
CPT/HCPCS: 36415; 71046; 80048; 80053; 83735; 84443; 84484; 85025; 85027; 85610; 85730; 93005; 93306; 96361; 96365; 96366; 96368; 99285

== ENCOUNTER 2023-01-28 08:18 | Day surgery (SDC) | payer MEDICARE ==
[2023-01-26 12:18] VITALS: BMI 24.3
[~2023-01-28 08:18] MED LIST: HYDROmorphone 0.5 MG/0.5 ML SYRINGE IVP PRN; LIDOCAINE 1% (10MG/ML) FOR IV START INTRADERMA PRN; ONDANSETRON 4 MG/2 ML VIAL IVP PRN
[2023-01-28] MEDS ORDERED: SODIUM CHLORIDE 0.9% 1,000 ML IV ONE (08:29)
[2023-01-28 08:42] LABS: Glucose,Whole Blood 133 mg/dL (70-110)
[2023-01-28 08:54] LABS: Basophils % (A) 1 %; Eosinophils # (A) 0.3 k/uL (0-0.7); Eosinophils % (A) 6 %; HGB 11.7 gm/dL (11.4-16.0); Lymphocytes # (A) 1.5 k/uL (1.0-4.8); Lymphocytes % (A) 28 %; MCH 30.3 pg (25.0-35.0); MCHC 33.5 g/dL (31.0-37.0); MCV 90.5 fL (80.0-100.0); Mean Platelet Volume 8.7; Monocytes # (A) 0.4 k/uL (0-1.0); Monocytes % (A) 7 %; Neutrophils % (A) 56 %; Platelet Count 242 k/uL (150-450); RBC 3.87 m/uL (3.80-5.40); RDW 13.4 % (11.5-15.5); WBC 5.3 k/uL (3.8-10.6)
[2023-01-28 09:08] LABS: Calcium 9.5 mg/dL (8.4-10.2); Potassium 4.7 mmol/L (3.5-5.1)
[2023-01-28] MEDS ORDERED: PROPOFOL 10 MG/ML 20 ML VIAL IV ONE (10:01)
[2023-01-28] MEDS ORDERED: MIDAZOLAM 2 MG/2 ML VIAL ONE (10:01)
[2023-01-28] MEDS ORDERED: SUCCINYLCHOLINE CHLORIDE 200 MG/10 ML VIAL IV ONE (10:01)
[2023-01-28] MEDS ORDERED: LIDOCAINE 2% INJ 20 MG/ML (2 ML VIAL) ONE (10:01)
[2023-01-28] MEDS ORDERED: PHENYLEPHRINE-0.9% NACL SYG 1,000 MCG/10 ML SYRINGE ONE (10:01)
[2023-01-28] MEDS ORDERED: PROTAMINE SULFATE 10 MG/ML 5 ML VIAL IV ONE (10:01)
[2023-01-28] MEDS ORDERED: ePHEDrine 50 MG/ML 1 ML VIAL ONE (10:01)
[2023-01-28] MEDS ORDERED: ONDANSETRON 4 MG/2 ML VIAL ONE (10:01)
[2023-01-28] MEDS ORDERED: ATROPINE SULFATE 0.4 MG/ML 1 ML VIAL ONE (10:01)
[2023-01-28] MEDS ORDERED: fentaNYL (PF) 50 MCG/ML 2 ML AMP ONE (10:01)
[2023-01-28] MEDS ORDERED: HEPARIN SODIUM,PORCINE 5,000 UNIT/ML 1 ML VIAL ONE (10:01)
[2023-01-28] MEDS ORDERED: LIDOCAINE 1% INJ 10MG/ML (20 ML MDV) SQ ONE (10:54)
[2023-01-28] MEDS ORDERED: HEPARIN SOD,PORK IN 0.45% NACL 25,000 UNIT in 0.45% NACL 1 250ML.BAG IV ONE (10:55)
[2023-01-28] MEDS ORDERED: IOPAMIDOL-250 100ML BTL IV ONE (12:53)
[2023-01-28] MEDS ORDERED: HEPARIN SODIUM (1,000 UNIT/ML) 1,000 UNIT in SODIUM CHLORIDE 0.9% 1,000 ML IRRIGATION ONE (12:54)
[2023-01-28] MEDS ORDERED: ACETAMINOPHEN TAB 325 MG TAB PO PRN (14:47)
[2023-01-28] MEDS ORDERED: ACETAMINOPHEN IV (For NPO) 1,000 MG in EMPTY BAG 1 BAG IVPB ONE (14:47)
--- NOTE | 2023-01-28 14:55 | P.HPCAR ---
History of Present Illness This is Dr. Haskins dictating an H/P on this patient The patient was interviewed and examined IMPRESSION / ASSESSMENT: Recurrent palpitations with documented paroxysmal atrial fibrillation with long postconversion pauses Presyncope associated with this Daytime sinus bradycardia at 42 beats a minute at 10:30 AM Normal stress test Normal LV size and function on 2-D echo normal left atrial size PLAN: Diagnostic EP study and A. fib ablation and ablation of any septal atrial tachycardias HPI Patient continues to have palpitations and dizzy spells No recent syncope Denies any chest discomfort no undue shortness of breath no loss of consciousness No fever chills cough expectoration ROS: No fever chills or rigors, no cough, phlegm or expectoration, no nausea, vomiting or diarrhea, no hematuria, dysuria, no musculoskeletal complaints, no strokes or seizures, no skin lesions. EXAMINATION: Afebrile respirations normal, blood pressure 124/73, No JVD Abdomen soft nontender Extremities are warm no edema Normal heart sounds normal S1 normal S2 REVIEW OF LABS, ECG & MEDICAL DATA Hemoglobin 11.7, normal platelet count Normal electrolytes BUN 18 and creatinine 0.94 Physical Exam Vitals: Vital Signs Temp Pulse Resp BP Pulse Ox 01/28/23 08:39 98 F 67 16 184/73 97 Intake and Output 01/27/23 01/28/23 01/28/23 22:59 06:59 14:59 Intake Total 1020 Output Total 150 Balance 870 Intake: IV 1020 Output: Urine 150 Other: Weight 61.9 kg Past Medical History Past Medical History: Cancer, Diabetes Mellitus, Hyperlipidemia, Hypertension, Skin Disorder Additional Past Medical History / Comment(s): SEE DR HASKINS'S H&P. HAD SOME BANDING OF HEMORRHOIDS IN 'S OFFICE- STILL HAS ONE THAT IS BLEEDING AT TIMES. Eczema. HX SKIN CA- MELANOMA RT THIGH. History of Any Multi-Drug Resistant Organisms: None Reported Past Surgical History: Breast Surgery, Cholecystectomy Additional Past Surgical History / Comment(s): BIOPSIES RADHA. BREAST AND UNDERARM AREAS A CHILD -BENIGN, GANGLION CYST REMOVED Past Anesthesia/Blood Transfusion Reactions: No Reported Reaction Past Psychological History: No Psychological Hx Reported Smoking Status: Former smoker Past Alcohol Use History: Occasional Past Drug Use History: None Reported Physical Examination Vital Signs Temp Pulse Resp BP Pulse Ox 01/28/23 08:39 98 F 67 16 184/73 97 Intake and Output 01/27/23 01/28/23 01/28/23 22:59 06:59 14:59 Intake Total 1020 Output Total 150 Balance 870 Intake: IV 1020 Output: Urine 150 Other: Weight 61.9 kg Results 01/28/23 08:35 01/28/23 08:35 CBC 01/28/23 Range/Units 08:35 WBC 5.3 (3.8-10.6) k/uL RBC 3.87 (3.80-5.40) m/uL Hgb 11.7 (11.4-16.0) gm/dL Hct 35.0 (34.0-46.0) % Plt Count 242 (150-450) k/uL Comprehensive Metabolic Panel 01/28/23 Range/Units 08:35 Sodium 139 (137-145) mmol/L Potassium 4.7 (3.5-5.1) mmol/L Chloride 103 (98-107) mmol/L Carbon Dioxide 27 (22-30) mmol/L BUN 18 H (7-17) mg/dL Creatinine 0.94 (0.52-1.04) mg/dL Glucose 139 H (74-99) mg/dL Calcium 9.5 (8.4-10.2) mg/dL Current Medications Generic Name Dose Route Start Last Admin Trade Name Freq PRN Reason Stop Dose Admin Acetaminophen 650 mg 01/28/23 14:47 Acetaminophen Tab 325 Mg Tab PO Q6HR PRN Mild Pain (Scale 1 to 3) Hydromorphone HCl 0.5 mg 01/28/23 07:00 Hydromorphone 0.5 Mg/0.5 Ml Syringe IVP 01/28/23 23:00 Q5M PRN Phase 1 or 2 - Pain Control Lactated Ringer's 1,000 mls @ 20 mls/hr 01/28/23 06:02 Lactated Ringers IV 02/27/23 06:03 .Q24H [facility] Sodium Chloride 1,000 mls @ 20 mls/hr 01/28/23 06:02 Saline 0.9% IV 02/27/23 06:03 .Q24H [facility] Acetaminophen 1,000 mg/ IV 100 mls @ 400 mls/hr 01/28/23 14:47 Solution IVPB 01/28/23 15:01 ONCE ONE Lidocaine HCl 0.1 ml 01/28/23 06:02 Lidocaine 1% (10mg/Ml) For Iv Start INTRADERMA 02/27/23 06:03 PER PROTOCOL PRN IV Start Ondansetron HCl 4 mg 01/28/23 07:00 Ondansetron 4 Mg/2 Ml Vial IVP 01/28/23 23:00 ONCE PRN Phase 1 or 2 - Nausea/Vomiting Sodium Chloride 12 ml 01/28/23 14:47 Sodium Chloride 0.9% Flush 10 Ml Syringe IV Q12HR PRN Line Flush Intake and Output 01/27/23 01/28/23 01/28/23 22:59 06:59 14:59 Intake Total 1020 Output Total 150 Balance 870 Intake: IV 1020 Output: Urine 150 Other: Weight 61.9 kg Patient Weight 01/29/23 06:59 Weight 61.9 kg 01/28/23 08:35 01/28/23 08:35
--- NOTE | 2023-01-28 15:06 | P.EPPROC ---
- EP Procedure Note Electrophysiology Procedure Note: PROCEDURE A. fib ablation/septal atrial tachycardia ablation DIAGNOSIS Atrial fibrillation, symptomatic, refractory to therapy Associated long postconversion pauses Daytime sinus bradycardia in the 40s RESULT No left atrial appendage mass seen on intracardiac echo Successful A. fib ablation/pulmonary vein isolation of all veins using cryo- ablation Complete entrance block in all 4 veins confirmed Ablation of the left atrial roof Ablation of the left atrial septal tachycardia from the right side on the SVC and left atrial No evidence for phrenic nerve injury Esophageal deflection YES PROCEDURE DETAILS Written informed consent prior to procedure. Patient brought to the EP lab. G eneral anesthesia given. Heparin administered. A city maintained above 300 seconds Both groins prepped and draped per protocol and venous sheaths placed. Esophagus intubated, circa catheter for temperature monitoring an endoscope for possible esophageal deflection. Phrenic nerve monitoring performed. Esophageal temperature monitoring performed. Esophageal deflection performed if circa catheter overlapping with the balloon or circa temperature less than 27.5C Intracardiac echocardiography performed. Pericardium evaluated. Left atrial appendage evaluated. Left atrium evaluated along with pulmonary veins Transseptal catheterization performed under fluoroscopic guidance and intracardiac echo guidance Cryoablation sheath exchanged, balloon catheter along with achieve catheter placed in the left atrium. Pulmonary veins isolated in the following sequence: Left superior pulmonary vein followed by left inferior pulmonary vein, followed by right inferior pulmonary vein and lastly right superior pulmonary vein. Phrenic nerve stimulation along with capture thresholds within the SVC and right superior pulmonary vein to identify the phrenic nerve proximity to the cryo- balloon. Pulmonary veins isolated and confirmed with entrance and exit block. Phrenic nerve integrity confirmed at the end of the procedure The distance between the right superior and left superior ablations was less than 2 centimeters (1.5 cm) Therefore for management of reentrant roof atrial tachycardia, linear ablation was performed Ablation of the left atrial roof performed with sequential lesions from the left superior to the right superior pulmonary veins. Ablation of the electrograms confirmed Patient had recurrent episodes of atrial tachycardia, spontaneously as well as with mechanical stimulation of the septum Ablation was performed along the septum from the SVC RA junction the right side and on the posterior septal aspect on the LA side, along fractionated electrograms Sinus tachycardia up to 110-118 beats is noted during this ablation 1 mg of atropine have resulted in heart rates of 110 beats a minute Diagnostic catheters for the high right atrium, His bundle, coronary sinus placed. LA and RA pressures recorded RA pressure: 7/0/4 LA pressure: 18/0/8 Diagnostic EP study with coronary sinus pacing and recording Baseline measurements: Sinus cycle length and and 38 ms,. We'll 142 ms, QRS 95 and QT 356 ms AH 86 ms and HV interval 35 ms Sinus recovery times at 504 100 ms were 915 and 645 ms. AV node Wenckebach block 310 ms IV atropine was given, 1 mg The heart rate 110 beats a minute No arrhythmias noted Venous sheaths were removed and hemostasis assured with a closure device. Patient extubated and transferred to recovery PROCEDURES PERFORMED Diagnostic EP study CS pacing and recording Left and right transseptal catheterization Catheter the mapping of the tachycardia Intracardiac echocardiography Pulmonary vein isolation with transseptal and comprehensive EPS, [id number] Ablation of septal atrial tachycardia Drug infusion, +[id number] Left atrial roof line, +[id number]
[2023-01-28 15:21] LABS: Glucose,Whole Blood 123 mg/dL (70-110)
[2023-01-28] MEDS: SODIUM CHLORIDE 0.9% 1,000 ML IV SCH (18:15)
[2023-01-28] MEDS: LACTATED RINGERS 1,000 ML IV SCH (18:15)
[2023-01-28] MEDS: metFORMIN 500 MG TAB PO SCH (20:22)
[2023-01-28 20:23] LABS: Glucose,Whole Blood 209 mg/dL (70-110)
[2023-01-28] MEDS ORDERED: ATORVASTATIN 20 MG TAB PO SCH (21:00)
[2023-01-29] MEDS: LACTATED RINGERS 1,000 ML IV SCH (03:50)
[2023-01-29] MEDS: SODIUM CHLORIDE 0.9% 1,000 ML IV SCH (03:51)
[2023-01-29] MEDS: metFORMIN 500 MG TAB PO SCH (07:38)
--- NOTE | 2023-01-29 08:04 | P.DS ---
Providers Attending physician: Apollo Haskins Primary care physician: Arm[facility] Course: Patient is doing well She is resting comfortably in bed no chest pain no respiratory distress Alert and oriented No chest discomfort. She does have a sore throat No chest discomfort dizziness lightheadedness she's been ambulating to the bathroom comfortably No hematoma in either groin No bleeding or oozing On examination heart sounds are normal and regular heart rates in the 70s Breath sounds are clear no rhonchi no crackles Twelve-lead EKG is normal sinus rhythm normal ST segments normal [place] interval heart rates and 78 beats a minute Impression Paroxysmal atrial fibrillation with long postconversion pauses up to 7 seconds, failed medical treatment, intolerant to beta blockers She also has daytime bradycardia in the 40s She underwent successful pulmonary vein isolation with complete isolation of all pulmonary veins She also went ablation of the upper posterior left atrial roof. Complete ablation confirmed on voltage mapping She underwent ablation of the SVC RA junction and the posterior septum for atrial tachycardia with a resultant increase in heart rate up to 110-117 beats a minute during RF lesions Hopefully this results in an improvement in the tendency for sinus bradycardia also Plan Stop metoprolol at this time Continue anticoagulation with xarelto Continue atorvastatin Continue metformin Continue amlodipine Discharge home later this afternoon after ambulating around, if she is hemodynamically stable Follow-up with Dr. Mckenna in 1 week Monitor for any bradycardia after 2-3 weeks Patient Condition at Discharge: Stable Plan - Discharge Summary Discharge Rx Participant: No New Discharge Prescriptions: Discontinued Metoprolol Succinate (ER) [Toprol XL] 12.5 mg PO DAILY #90 tab No Action Atorvastatin [Lipitor] 20 mg PO HS lisinopriL [Zestril] 30 mg PO DAILY amLODIPine [Norvasc] 5 mg PO DAILY clonazePAM [Clonazepam] 0.5 mg PO DIRECTED PRN PRN Reason: Anxiety Dupilumab [Dupixent Syringe] 300 mg SQ Q14D Rivaroxaban [Xarelto] 20 mg PO DAILY #30 tab metFORMIN HCL ER [Glucophage XR] 750 mg PO BID Discharge Medication List Atorvastatin [Lipitor] 20 mg PO HS 05/29/14 [History] lisinopriL [Zestril] 30 mg PO DAILY 08/30/22 [History] Rivaroxaban [Xarelto] 20 mg PO DAILY #30 tab 10/25/22 [Rx] Dupilumab [Dupixent Syringe] 300 mg SQ Q14D 01/26/23 [History] amLODIPine [Norvasc] 5 mg PO DAILY 01/26/23 [History] clonazePAM [Clonazepam] 0.5 mg PO DIRECTED PRN 01/26/23 [History] metFORMIN HCL ER [Glucophage XR] 750 mg PO BID 01/26/23 [History] Follow up Appointment(s)/Referral(s): Rolan Bush MD [STAFF PHYSICIAN] - 1 Week Activity/Diet/Wound Care/Special Instructions: Post EP study - Ablation instructions 1. Keep access sites dry for 2 days. 2. No heavy lifting or straining for 2 days. 3. Avoid bending the hips repeatedly for 2 days. 4. You may go up and down stairs slowly Call if the following is noted 1. Bleeding, increasing swelling or pain at the access sites. 2. Increasing chest discomfort, especially upon taking a deep breath. 3. Increasing shortness of breath, at rest or with exertion. 4. Undue cough / phlegm 5. Difficulty or pain while swallowing. 6. Pain or change in color in the extremities. 7. Fever, chills, rigors. 8. Increasing headache or neurologic symptoms. 9. Dizziness, fainting, palpitations Continue xarelto Hold metoprolol Continue all other medications Follow-up with Dr. Mckenna in 1-2 weeks Hold Metoprolol For now!!!
[2023-01-29 08:42] VITALS: BP 103/58; PULSE 77; RESP 16; TEMP 98.4
[2023-01-29] MEDS ORDERED: amLODIPine 5 MG TAB PO SCH (09:00)
[2023-01-29] MEDS ORDERED: RIVAROXABAN 20 MG TAB PO SCH (09:00)
[2023-01-29] MEDS ORDERED: lisinopriL 10 MG TAB PO SCH (09:00)
== END 2023-01-29 12:45 | disposition home or self-care (01) ==
LOC: CATHEP 08:18 → 6NMEDSUR 14:07 → CATHEP 01-29 12:45
PROVIDERS: ATTEND Internal Medicine Clinical Cardiac Electrophysiology
DX: I48.0 Paroxysmal atrial fibrillation (principal); I47.1 Supraventricular tachycardia; E11.9 Type 2 diabetes mellitus without complications; E78.5 Hyperlipidemia, unspecified; I10 Essential (primary) hypertension; Z79.01 Long term (current) use of anticoagulants; Z79.84 Long term (current) use of oral hypoglycemic drugs; Z79.899 Other long term (current) drug therapy; Z85.820 Personal history of malignant melanoma of skin; Z87.891 Personal history of nicotine dependence
CPT/HCPCS: 93656; 93657; 80048; 85025; C1894 ×2; C1769 ×4; C1760; C1730 ×2; C1893; C1733; C1766; C1732; J2001; J1644 ×2; Q9966

== ENCOUNTER → 2023-03-18 | Outpatient (CLI) | payer MEDICARE ==
--- NOTE | 2023-03-19 19:24 | MM ---
Reason for Exam: Screening (asymptomatic). Last mammogram was performed 3 year(s) and 4 month(s) ago. Patient History: Menarche at age 10. First Full-Term at age 32. Late child-bearing (after 30). Postmenopausal. Other cancer. Patient used Hormonal Contraceptives for 3 years. Benign Excisional Biopsy on the left side. Benign Excisional Biopsy on the right side. Risk Values: Swapna 5 year model risk: 3.8%. NCI Lifetime model risk: 12.7%. Prior Study Comparison: 08/13/2017 Bilateral Screening Mammogram, [facility]. 11/10/2018 Bilateral Screening Mammogram, [facility]. 12/04/2019 Bilateral Screening Mammogram, [facility]. Tissue Density: The breast tissue is heterogeneously dense. This may lower the sensitivity of mammography. Findings: Analyzed By CAD. Unchanged asymmetric density medial left CC view. Benign vascular calcifications. There is no suspicious group of microcalcifications or new suspicious mass in either breast. Overall Assessment: Benign, BI-RAD 2 Management: Screening Mammogram of both breasts in 1 year. . Patient should continue monthly self-breast exams. A clinical breast exam by your physician is recommended on an annual basis. This exam should not preclude additional follow-up of suspicious palpable abnormalities. Note on Swapna scores and lifetime risk: 1. A Swapna score greater than 3% is considered moderate risk. If this is the case, consider specialist referral to assess eligibility for a risk reducing agent. 2. If overall lifetime risk for the development of breast cancer is 20% or higher, the patient may qualify for future screening with alternating mammogram and breast MRI. Electronically signed and approved by: Cali Summers M.D. Radiologist
== END | disposition home or self-care (01) ==
LOC: RADMAMWWP 13:07
PROVIDERS: ATTEND Family Medicine
DX: Z12.31 Encounter for screening mammogram for malignant neoplasm of breast (principal); Z78.0 Asymptomatic menopausal state
CPT/HCPCS: 77063; 77067

== ENCOUNTER 2023-09-29 07:05 | Day surgery (SDC) | payer MEDICARE ==
[2023-09-27 15:49] VITALS: BMI 21.6
[~2023-09-29 07:05] MED LIST changes: -HYDROmorphone 0.5 MG/0.5 ML SYRINGE IVP PRN; +LACTATED RINGERS 1,000 ML IV SCH; -ONDANSETRON 4 MG/2 ML VIAL IVP PRN
[2023-09-29 07:43] LABS: Glucose,Whole Blood 132 mg/dL (70-110)
[2023-09-29 07:58] VITALS: RESP 16; TEMP 96.8
[2023-09-29] MEDS ORDERED: PROPOFOL 10 MG/ML 20 ML VIAL IV ONE (08:08)
[2023-09-29] MEDS ORDERED: LIDOCAINE 2% (PF) 20 MG/ML 5 ML VIAL ONE (08:08)
--- NOTE | 2023-09-29 08:49 | P.PCN ---
Date of Procedure: 09/29/23 Procedure(s) Performed: Brief history: Patient is a pleasant 67-year-old white female scheduled for an elective upper endoscopy as well as colonoscopy as a part of evaluation of iron deficiency anemia. His been complaining of intermittent rectal bleeding. History of A. fib and has been on Xarelto for 1 year. Procedure performed: Esophagogastroduodenoscopy with biopsy Colonoscopy with snare polypectomy Preoperative diagnosis: I deficiency anemia Anesthesia: MAC Procedure: After informed consent was obtained from the patient was brought into the endoscopy unit and IV sedation was administered by anesthesia under continuous monitoring. Initially upper endoscopy was done. The Olympus GF 160 video endoscope was inserted inserted into the mouth and esophagus intubated without any difficulty and was gradually advanced into the stomach and duodenum and carefully examined. The bulb and second part of the duodenum appeared normal. The scope was then withdrawn into the stomach adequately insufflated with air and upon careful examination the antrum and body, cardia and fundus appeared normal. The scope was then withdrawn into the esophagus. The GE junction was located at 40 cm to the incisors. It appeared regular with no erythema erosions or ulcerations. Rest of the esophagus appeared normal. Patient tolerated the procedure well. At this time the patient continued to remain sedation. Initial digital rectal examination was normal. Olympus CF 160 video colonoscope was then inserted into the rectum and gradually advanced to the cecum without any difficulty. Careful examination was performed as the scope was gradually being withdrawn. The prep was excellent. The cecum, ascending colon, transverse colon, appeared normal. The descending colon there was a 5 limited polyp that was removed by cold snare polypectomy. Rest of the descending colon, sigmoid colon and rectum appeared normal. Retroflexion was performed in the rectum and small internal were noted. Patient tolerated the procedure well. Impression: 1. Upper endoscopy revealed mild antral gastritis but no evidence of esophagitis or peptic ulcer disease 2. Colonoscopy revealed 5 mm descending colon polyp status post cold snare polypectomy and grade 2 internal hemorrhoids Recommendations: Findings of this examination were discussed with the patient as well as her family. She was advised to follow with the biopsy results. If the biopsy revealed adenoma she can have a repeat colonoscopy in 5 years. She was advised to resume Xarelto today.
[2023-09-29 08:54] VITALS: BP 117/61; PULSE 63
== END 2023-09-29 09:25 | disposition home or self-care (01) ==
LOC: ORWHC2ENDO 07:05
PROVIDERS: ATTEND Internal Medicine Gastroenterology
DX: K29.50 Unspecified chronic gastritis without bleeding (principal); D12.4 Benign neoplasm of descending colon; D50.9 Iron deficiency anemia, unspecified; K64.1 Second degree hemorrhoids; K62.5 Hemorrhage of anus and rectum; I48.91 Unspecified atrial fibrillation; I10 Essential (primary) hypertension; E78.5 Hyperlipidemia, unspecified; E11.9 Type 2 diabetes mellitus without complications; Z79.84 Long term (current) use of oral hypoglycemic drugs; Z79.01 Long term (current) use of anticoagulants; Z79.899 Other long term (current) drug therapy; Z88.0 Allergy status to penicillin; Z98.890 Other specified postprocedural states; Z85.820 Personal history of malignant melanoma of skin
CPT/HCPCS: 88305; 45385; 43239; J2704; J2001

== ENCOUNTER → 2024-01-21 | Outpatient (CLI) | payer MEDICARE ==
--- NOTE | 2024-01-24 16:19 | US ---
EXAMINATION TYPE: US carotid duplex BILAT DATE OF EXAM: 01/21/2024 COMPARISON: NONE CLINICAL INDICATION: Female, 68 years old with history of I65.23 carotid stenosis; hx heart problems TECHNIQUE: Carotid duplex ultrasound examination. Indirect Doppler criteria was utilized. FINDINGS: EXAM MEASUREMENTS: RIGHT: Peak Systolic Velocity (PSV) cm/sec ----- Right CCA: 82.8 ----- Right ICA: 109 ----- Right ECA: 56.7 ICA/CCA ratio: 1.3 RIGHT: End Diastole cm/sec ----- Right CCA: 22.8 ----- Right ICA: 36.2 ----- Right ECA: 8.3 LEFT: Peak Systolic Velocity (PSV) cm/sec ----- Left CCA: 93.8 ----- Left ICA: 97.4 ----- Left ECA: 84.7 ICA/CCA ratio: 1.0 LEFT: End Diastole cm/sec ----- Left CCA: 24.9 ----- Left ICA: 29.1 ----- Left ECA: 8.9 VERTEBRALS (direction of flow): Right Vertebral: Antegrade Left Vertebral: Antegrade Rhythm: Normal MARKING STITCHER NOTES: no stenosis or elevated velocities, mild-moderate atherosclerotic plaque noted kim aterally The exam is limited by shadowing plaque and deep diving vessels IMPRESSION: Exam limitations as above. No hemodynamically significant internal carotid artery stenosis on either side. Criteria for Assigning % of Stenosis / Diameter reduction (Estimation based on the indirect measurements of the internal carotid artery velocities (ICA PSV). 1. Normal (no stenosis)=ICA PSV < 125 cm/s: ratio < 2.0: ICA EDV<40 cm/s. 2. Less than 50% stenosis=ICA PSV < 125 cm/s: ratio < 2.0: ICA EDV<40 cm/s. 3. 50 to 69% stenosis=ICA PSV of 125 to 230 cm/s: ration 2.0 ? 4.0: ICA EDV 40-100 cm/s. 4. Greater than 70% stenosis to near occlusion= ICA PSV > 230 cm/s: ratio > 4.0: ICA EDV > 100 cm/s. 5. Near occlusion= ICA PSV velocities may be low or undetectable: variable ratio and ICA EDV. 6. Total occlusion=unable to detect flow.
== END | disposition home or self-care (01) ==
LOC: RADUSWWP 14:59
PROVIDERS: ATTEND Internal Medicine
DX: I65.23 Occlusion and stenosis of bilateral carotid arteries (principal)
CPT/HCPCS: 93880

== ENCOUNTER → 2024-03-20 | Outpatient (CLI) | payer MEDICARE ==
--- NOTE | 2024-03-20 10:39 | MM ---
Reason for Exam: Screening (asymptomatic). Last screening mammogram was performed 12 month(s) ago. Patient History: Menarche at age 10. First Full-Term at age 32. Late child-bearing (after 30). Postmenopausal. Other cancer. Patient used Hormonal Contraceptives for 3 years. Benign Excisional Biopsy on the left side. Benign Excisional Biopsy on the right side. Risk Values: Swapna 5 year model risk: 3.9%. NCI Lifetime model risk: 12.2%. Prior Study Comparison: 11/10/2018 Bilateral Screening Mammogram, [facility]. 12/04/2019 Bilateral Screening Mammogram, [facility]. 03/18/2023 Bilateral MG 3D screening mammo w/cad, [facility]. Tissue Density: There are scattered areas of fibroglandular density. Findings: Analyzed By CAD. Right breast: There is no suspicious group of microcalcifications or new suspicious mass. Left breast: There is no suspicious group of microcalcifications or new suspicious mass. Overall Assessment: Negative, BI-RAD 1 Management: Screening Mammogram of both breasts in [address] [facility] will attempt to contact patient to return for supplemental views and ultrasound if indicated. Patient should continue monthly self-breast exams. A clinical breast exam by your physician is recommended on an annual basis. This exam should not preclude additional follow-up of suspicious palpable abnormalities. Note on Swapna scores and lifetime risk: 1. A Swapna score greater than 3% is considered moderate risk. If this is the case, consider specialist referral to assess eligibility for a risk reducing agent. 2. If overall lifetime risk for the development of breast cancer is 20% or higher, the patient may qualify for future screening with alternating mammogram and breast MRI. Electronically signed and approved by: Juventino Christopher DO
--- NOTE | 2024-03-20 18:10 | BD ---
EXAMINATION TYPE: Axial Bone Density DATE OF EXAM: 03/20/2024 CLINICAL HISTORY: 68 years old Female. ICD-10 CODE: M85.851 OTHER DISORDERS OF BONE DENSITY Height: 62in Weight: 122lb FRAX RISK QUESTIONS: Family History (Parent hip fracture): yes Secondary Osteoporosis: 3. Menopause before 45: yes RISK FACTORS HISTORY OF: MEDICATIONS: EXAM MEASUREMENTS: Bone mineral densitometry was performed using the [employer]. Bone mineral density as measured about the Lumbar spine is: ----- L1-L4(G/cm2): 1.557 T Score Values are as follows: ----- L1: 1.9 ----- L2: 2.2 ----- L3: 3.6 ----- L4: 4.2 ----- L1-L4: 3.1 Z Score Values are as follows: ----- L1: 3.9 ----- L2: 4.1 ----- L3: 5.6 ----- L4: 6.2 ----- L1-L4: 5.1 Previous lumbar 08-14-08 unavailable for comparison Bone mineral density about the R hip (g/cm2): 1.131 Bone mineral density about the L hip (g/cm2): 1.168 T Score values are as follows: -----R Neck: 0.2 -----L Neck: 0.3 -----R Total: 1.0 -----L Total: 1.3 Z Score values are as follows: -----R Neck: 2.0 -----L Neck: 2.1 -----R Total: 2.6 -----L Total: 2.9 Bone mineral density has: Decreased -1.2% since study of: 08-14-08 FRAX%s: The graph provided illustrates a 10.7% chance for a major osteoporotic fx and a 0.4% chance f or the hips probability for fx in 10 years time. IMPRESSION: Normal (Values between +1 and -1 indicate normal bone mass). Consider repeating this study in 5 year s or sooner if there is some new clinical indication. NOTE: T-SCORE=SD OF THE YOUNG ADULT MEAN.
== END | disposition home or self-care (01) ==
LOC: RADBDWWP 07:36
PROVIDERS: ATTEND Internal Medicine
DX: Z12.31 Encounter for screening mammogram for malignant neoplasm of breast (principal); Z13.820 Encounter for screening for osteoporosis; M81.0 Age-related osteoporosis without current pathological fracture; M85.851 Other specified disorders of bone density and structure, right thigh; Z78.0 Asymptomatic menopausal state
CPT/HCPCS: 77063; 77067; 77080

== ENCOUNTER → 2024-04-11 | Outpatient (CLI) | payer MEDICARE ==
[2024-04-11 08:16] LABS: African American GFR (CKD) 56 (>60 ml/min/1.73 sqM); Blood Urea Nitrogen 24 mg/dL (7-17); Non-African American GFR(CKD) 49 (>60 ml/min/1.73 sqM)
--- NOTE | 2024-04-11 10:36 | CT ---
EXAMINATION TYPE: CT ChestAbdPelvis w con CT DLP: 575.30 mGycm, Automated exposure control for dose reduction was used. DATE OF EXAM: 04/11/2024 9:34 AM COMPARISON: 02/25/2023. CLINICAL INDICATION:Female, 68 years old with history of D64.9 anemia, anemia Technique: CT ChestAbdPelvis w con; Multiple axial images were obtained. Two-dimensional coronal and sagittal reconstructions were obtained. Contrast used:80 mL of Isovue 300 with IV Contrast, Oral contrast used: without Oral Contrast Findings: CHEST: LUNGS/ PLEURA: No evidence for focal consolidation, pneumothorax or pleural effusion. AIRWAY: Patent and unremarkable. HEART: Size within normal limits. Atherosclerosis of the aortic valve. MEDIASTINUM: No gross evidence of adenopathy. VASCULATURE: Atherosclerotic calcifications are present throughout the aorta and its branches. MUSCULOSKELETAL: No acute osseous abnormalities. SOFT TISSUES/LYMPH NODES: Unremarkable. LOWER NECK: No significant findings. ABDOMEN: ABDOMEN LIVER: Unremarkable GALLBLADDER AND BILE DUCTS: The gallbladder is surgically absent. PANCREAS: Unremarkable. SPLEEN: Unremarkable. ADRENAL GLANDS: Unremarkable. KIDNEYS AND URETERS: No evidence of hydronephrosis or renal calculus. The ureters are unremarkable. PELVIS BLADDER: Unremarkable REPRODUCTIVE: Unremarkable. ABDOMEN & PELVIS STOMACH AND BOWEL: No evidence of bowel obstruction. Mild hyperemia because of the ascending colon/ce cum. The appendix is normal. PERITONEUM: No evidence of pneumoperitoneum or free fluid. VASCULATURE: No evidence of aortic aneurysm. MUSCULOSKELETAL: No acute osseous abnormalities LYMPH NODES: No gross evidence for lymphadenopathy. SOFT TISSUE/ABDOMINAL WALL: Unremarkable IMPRESSION: 1. No evidence for acute thoracic or abdominal process. 2. No evidence for hemorrhage or hematoma. 3. Mild hyperemia of the cecum and ascending colon correlate for colitis.
== END | disposition home or self-care (01) ==
LOC: RADCTMAIN 07:35
PROVIDERS: ATTEND Internal Medicine
DX: D64.9 Anemia, unspecified (principal)
CPT/HCPCS: 82565; 84520; 71260; 74177; 36415; Q9967

== ENCOUNTER → 2024-04-24 | Day surgery (SDC) | payer MEDICARE ==
[2024-04-18 12:07] VITALS: BMI 21.9
[2024-04-24 06:59] VITALS: BP 139/65; PULSE 64; RESP 16; TEMP 98
[2024-04-24] MEDS: SIMETHICONE 40 MG/0.6 ML DROPS 2,000 MG/30 ML BOTTLE PO ONE (07:08)
== END ==
LOC: ORWHC2ENDO 06:28
PROVIDERS: ATTEND Internal Medicine Gastroenterology
DX: D64.9 Anemia, unspecified (principal)
CPT/HCPCS: 91110

== ENCOUNTER → 2024-05-02 | Outpatient (CLI) | payer MEDICARE ==
[2024-05-02 15:23] LABS: Reticulocyte % 1.39 % (0.10-1.80)
[2024-05-02 15:54] LABS: % Iron Saturation 3.98 (12.00-45.00); Iron 19 UG/DL (50-170); Total Iron Binding Capacity 477 UG/DL (228-460)
[2024-05-02 15:58] LABS: Vitamin B12 <150.0 pg/mL (200.0-944.0)
== END | disposition home or self-care (01) ==
LOC: LABWHC1 07:53
PROVIDERS: ATTEND Internal Medicine
DX: D64.9 Anemia, unspecified (principal)
CPT/HCPCS: 36415; 82272; 82607; 82728; 83540; 83550; 83605; 85045

== ENCOUNTER → 2024-11-10 | Day surgery (SDC) | payer MEDICARE ==
[2024-11-10 08:32] LABS: Glucose,Whole Blood 122 mg/dL (70-110)
[2024-11-10 08:42] VITALS: BP 159/74; PULSE 65; RESP 18; TEMP 97.9
[2024-11-10] MEDS: GLUCAGON 1 MG/ML VIAL IM STA (09:26)
--- NOTE | 2024-11-13 10:09 | MR ---
EXAMINATION TYPE: MR Enterography DATE OF EXAM: 11/10/2024 9:56 AM COMPARISON: 04/11/2024. CLINICAL INDICATION: Female, 69 years old with history of D50.9 iron deficiency anemia; PHH, Anemia. TECHNIQUE: Standard multiplanar, multisequence imaging of the abdomen is performed without and with I V contrast, patient is injected with 5 mL intravenous Gadobutrol gadolinium contrast. Oral Glucagon was given as per enterography protocol. Oral Contrast: 1000ml FINDINGS: LOWER CHEST: No significant findings. ABDOMEN Bowel: The small bowel distention is inadequate proximally. No definite evidence to suggest abnormal bowel wall thickening involving a small bowel or large bowel. No evidence of bowel obstruction. No evidence for mucosal hyperenhancement, stricture or fistulous tract formation. The duodenum is grossl y unremarkable. Large amount of stool throughout the colon. Peritoneum: No evidence of pneumoperitoneum, free fluid, or adenopathy. Liver: Unremarkable. Gallbladder and Bile ducts: The gallbladder is surgically absent. Cystic duct remnant present. Pancreas: Unremarkable. Spleen: Unremarkable. Adrenal glands: Unremarkable. Kidneys: Simple appearing right renal cyst. No evidence for hydronephrosis. Bladder: Unremarkable. Reproductive: Unremarkable. Lymph Nodes: Vasculature: Unremarkable. No aortic aneurysm. Musculoskeletal: The osseous structures appear intact. Abdominal wall: Unremarkable. IMPRESSION: 1. The duodenum and small bowel is grossly unremarkable. No evidence for active bowel disease. 2. Large amount stool in the colon. 3. Simple appearing right renal cyst. [facility], , 11/13/2024 10:06 AM
== END ==
LOC: RADMRIMAIN 07:30
PROVIDERS: ATTEND Internal Medicine
DX: D50.9 Iron deficiency anemia, unspecified (principal); N28.1 Cyst of kidney, acquired
CPT/HCPCS: 96372; 72197; 74183; J1610; A9585

== ENCOUNTER → 2025-01-25 | Outpatient (CLI) | payer MEDICARE ==
--- NOTE | 2025-01-25 16:30 | US ---
EXAMINATION TYPE: US kidneys/renal and bladder DATE OF EXAM: 01/25/2025 COMPARISON: NONE CLINICAL INDICATION: Female, 69 years old with history of N28.9 DISORDER OF KIDNEY AND URETER, UNSPEC IFIED; abnormal renal function test. TECHNIQUE: Grayscale imaging of the bilateral kidneys and urinary bladder: FINDINGS: EXAM MEASUREMENTS: Right Kidney: 8.4 x 3.3 x 3.3 cm Left Kidney: 8.4 x 4.2 x 4.0 cm Right Kidney: No hydronephrosis or masses seen Left Kidney: No hydronephrosis or masses seen Bladder: wnl Bilateral Jets seen: Yes There is no evidence for hydronephrosis at this point in time. No nephrolithiasis is seen. No isatu s are identified. The urinary bladder is anechoic. IMPRESSION: Unremarkable study [facility], , 01/25/2025 4:28 PM
== END | disposition home or self-care (01) ==
LOC: RADUSWWP 16:01
PROVIDERS: ATTEND Internal Medicine
DX: N28.9 Disorder of kidney and ureter, unspecified (principal)
CPT/HCPCS: 76770